=== PATIENT | female | born 1970 | race Caucasian/White ===

== ENCOUNTER 2018-06-11 23:58 | Emergency (ER) | payer OTHER ==
[~2018-06-11] VITALS: Ht 160 cm; Wt 51.5 kg
[~2018-06-11 23:58] MED LIST: bcp
[2018-06-12 02:11] VITALS: BP 115/81
== END 2018-06-12 02:12 | disposition home or self-care (01) ==
LOC: EME 23:58
DX: S90.31XA Contusion of right foot, initial encounter (principal); W21.07XA Struck by softball, initial encounter; Z88.0 Allergy status to penicillin
CPT/HCPCS: 73630; 99281; 99284